=== PATIENT | female | born 1970 | race Caucasian/White ===

== ENCOUNTER 2023-06-12 21:10 | Emergency (ER) | payer OTHER, SELFPAY ==
--- NOTE | ~2023-06-12 | XR_ITS ---
EXAMINATION: XR knee LT 3V, XR hip LT w PEL1V CLINICAL INFORMATION: Additional Information: Left knee pain, rule out fracture : Left hip pain. COMPARISON: None. TECHNIQUE: Frontal view of the pelvis with 2 views of the left hip. 4 views of the left knee. FINDINGS: Pelvis/left hip: No fracture or dislocation. The hips are well aligned. Joint spaces are maintained. The pelvic rim is intact. The sacroiliac joints and pubic symphysis are well aligned. Normal bowel gas pattern. Left knee: No fracture or subluxation. Compartmental joint spaces are maintained. No joint effusion. The soft tissues appear unremarkable. XR/XR hip LT w PEL1V IMPRESSION: No fracture or malalignment.
--- NOTE | ~2023-06-12 | XR_ITS ---
EXAMINATION: XR knee LT 3V, XR hip LT w PEL1V CLINICAL INFORMATION: Additional Information: Left knee pain, rule out fracture : Left hip pain. COMPARISON: None. TECHNIQUE: Frontal view of the pelvis with 2 views of the left hip. 4 views of the left knee. FINDINGS: Pelvis/left hip: No fracture or dislocation. The hips are well aligned. Joint spaces are maintained. The pelvic rim is intact. The sacroiliac joints and pubic symphysis are well aligned. Normal bowel gas pattern. Left knee: No fracture or subluxation. Compartmental joint spaces are maintained. No joint effusion. The soft tissues appear unremarkable. XR/XR knee LT 3V IMPRESSION: No fracture or malalignment.
--- NOTE | ~2023-06-12 | US_ITS ---
EXAMINATION: US VENOUS ULTRASOUND WITH DOPPLER LOWER EXTREMITY, LEFT CLINICAL INFORMATION: Leg pain COMPARISON: None available. TECHNIQUE: Ultrasound of the deep veins is performed from the hip to the calf with compression sonography and color and pulse Doppler assessment. Spectral analysis with color-flow imaging is performed. FINDINGS: There is normal venous compression and respiratory variation and augmented flow. The visualized common femoral vein, superficial femoral vein, profunda femoral vein, popliteal vein, and the trifurcation region shows no evidence of deep venous thrombosis. There is no significant popliteal fossa cyst. If the patient's symptoms persist, followup ultrasound in 5 days 7 days might be of value to exclude proximal propagation from a non-visualized calf vein. US/US venous duplex LE LT IMPRESSION: No DVT demonstrated in the left lower extremity.
[2023-06-12 21:42] VITALS: BP 145/86; PULSE 66; RESP 16; TEMP 36.8; O2SAT 98; BMI 43.2
--- NOTE | 2023-06-13 | ECG_ITS ---
Test Reason : BRADYCARDIA Blood Pressure : / mmHG Vent. Rate : 054 BPM Atrial Rate : 054 BPM P-R Int : 204 ms QRS Dur : 088 ms QT Int : 488 ms P-R-T Axes : 051 006 018 degrees QTc Int : 462 ms Sinus bradycardia with marked sinus arrhythmia Cannot rule out Inferior infarct , age undetermined Nonspecific T wave abnormality Abnormal ECG When compared with ECG of 11-FEB-2009 12:47, Vent. rate has decreased BY 54 BPM Referred By: Generic ED Physician Electronically Signed By:DARRIN HARGROVE
[2023-06-13 01:03] VITALS: BP 162/74; PULSE 50; RESP 16; TEMP 36.1; O2SAT 100
--- NOTE | 2023-06-13 01:07 | MHC.EDTECH ---
Pt VS taken and RN informed of high BP.
[2023-06-13 02:57] VITALS: BP 132/61; PULSE 40; RESP 16; TEMP 36.1; O2SAT 100
--- NOTE | 2023-06-13 03:21 | MHC.EDTECH ---
VS taken, noted to be in bradycardia, RN notified.
[2023-06-13 03:30] LABS: Basophils Absolute Auto 0.1 X10*3/uL (0.0-0.2); Eosinophils Absolute Auto 0.1 X10*3/uL (0.0-0.4); Eosinophils Percent Auto 1.4 % (0-4); Hematocrit 42.9 % (37.0-47.0); Hemoglobin 14.2 g/dl (12.0-16.0); Imm Gran Abs Auto 0.01 X10*3/uL (0.00-0.03); Imm Gran Pct Auto 0.1 % (0.0-0.4); Lymphocytes Absolute Auto 2.8 X10*3/uL (1.2-4.9); Lymphocytes Percent Auto 35.1 % (20-40); MANUAL DIFF FLAG NO; Mean Corpuscular HGB Conc 33.1 g/dl (31.0-35.0); Mean Corpuscular Hemoglobin 29.8 pg (27.0-33.0); Mean Corpuscular Volume 90.1 fL (80.0-98.0); Mean Platelet Volume 9.7 fL (9.4-12.3); Monocytes Absolute Auto 0.6 X10*3/uL (0.1-1.2); Monocytes Percent Auto 7.1 % (2-11); Neutrophils Absolute Auto 4.5 x10*3/uL (2.0-8.3); Neutrophils Percent Auto 55.3 % (45-73); Platelet Count 319 X10*3/uL (160-400); Red Blood Count 4.76 X10*6/uL (4.20-5.50); Red Cell Distribution Width 12.4 % (11.0-16.0)
--- NOTE | 2023-06-13 03:30 | PC.NURSE ---
EDTA notified this RN that pt noted to be bradycardic at this time to 40 BPM. Pt relates that she has been having right leg numbness x1 month, states her mother approximately a month and a half ago and has not been in to see a physician nor does she follow with a PCP or take daily medications. Pt placed on wildlife policy professional, EKG taken and given to Dr. Davis, #20 PIV initiated to right AC, blood drawn and sent to lab. Pt moved to ED #1 for closer monitoring, Sugey RN given handoff report at this time.
[2023-06-13 03:36] LABS: INTERNATIONAL NORM RATIO 0.9 (0.9-1.1); Prothrombin Time 11.5 SEC (11.1-13.3)
[2023-06-13 03:47] LABS: Alanine Aminotransferase 21 U/L (0-31); Albumin Level 4.1 g/dL (3.5-5.0); Alkaline Phosphatase 83 U/L (39-117); Anion Gap 13 (12-20); Aspartate Amino Transferase 18 U/L (5-31); Bilirubin Direct 0.3 mg/dL (0.0-0.5); Bilirubin Total 0.7 mg/dL (0.0-1.0); Blood Urea Nitrogen 16 mg/dL (9-16); Calcium 9.6 mg/dL (8.4-10.2); Carbon Dioxide 24 mmol/L (22-29); Chloride 109 mmol/L (96-108); Creatinine Clr Calc Pharmacy 97.3; Estimated Glomerular Filt Rate > 60; Glucose Random 101 mg/dL (60-115); Potassium 4.1 mmol/L (3.3-5.1); Sodium 142 mmol/L (135-145); Total Protein 7.4 g/dL (6.5-8.0)
--- NOTE | 2023-06-13 03:55 | PC.NURSE ---
P 40-45, EKG completed and reviewed by Dr. Callejas. Patient denies dizziness/ lightheadedness/ fatigue/chest pain. paper inspector applied, sinus brigid P 40. 20 G IV line in R AC, labs drawn at [facility].
[2023-06-13 03:56] LABS: Troponin-I High Sensitivity < 2.7 ng/L (<3.5-17.0)
--- NOTE | 2023-06-13 04:21 | ED.GENADULT ---
HPI - General Adult General Chief complaint: General Medical Stated complaint: difficulty breathing numbness in fingers Time Seen by Provider: 06/13/23 04:20 Source: patient and family (Daughter) Mode of arrival: ambulatory Limitations: no limitations History of Present Illness HPI narrative: 52-year-old female with no significant past medical history who presents emergency department for evaluation of numbness, weakness and pain in her left lower extremity for 1 month. Patient states that she has been experiencing pain behind her left knee that radiates to her left buttocks. She states that this is been going on for 1 month this got worse over the past week. She states that today she was having pain with walking and states that she was able to walk but was limping. She states that she used an [id number] medication but does not remember the name of it, this did not help her pain Patient did not notice any increased swelling of her leg. Patient does not recall any injury. 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 While the patient was here in the emergency department she was noted to have bradycardia. Patient did not have any symptoms she denied chest pain, shortness of breath, cough, fever, chills. Related Data Allergies Allergy/AdvReac Type Severity Reaction Status Date / Time No Known Allergies Allergy Unverified 07/14/20 15:28 Review of Systems Review of Systems: Yes all other systems are reviewed and are negative [facility] Past Medical History [facility] Narrative: Past medical history: None. Surgical history: Appendectomy, x3. Social history: She denies tobacco, alcohol and drug use. She works at [employer]. Social History Social History Advance Directives: No Advance Directives Information Provided: No Physical Exam ED Vital Signs: Vital Signs - 24 hr 06/12/23 21:42 06/13/23 01:03 06/13/23 02:57 Temperature 98.3 F 97 F 96.9 F Pulse Rate 66 50 40 L Respiratory Rate 16 16 16 Blood Pressure 145/86 H 162/74 H 132/61 Pulse Oximetry 98 100 100 Oxygen Delivery Method Room Air Room Air Room Air 06/13/23 05:20 08/17/23 06:30 06/13/23 07:23 Temperature 97.9 F 98.0 F 97.7 F Pulse Rate 40 L 58 40 L Respiratory Rate 14 14 14 Blood Pressure 140/47 H 139/68 133/55 L Pulse Oximetry 96 99 100 Oxygen Delivery Method Room Air Room Air Room Air BMI result Body Mass Index 43.2 Vital signs did reveal an elevated blood pressure of 145/86 and 162/74. Patient initially had a normal heart rate of 66 and have heart rate that went down to 40, she was asymptomatic Exam: General: Awake, alert in no distress. Patient has an elevated BMI of 43.2. Head: Normocephalic, atraumatic EENT: PERRL, Lids normal, sclera normal, conjunctiva normal, nose normal , ears normal, throat without erythema or exudates Neck: Supple, no adenopathy, trachea midline and nontender Lung: breath sounds symmetric, no wheezing, rales or rhonchi Chest: symmetric movement, nontender Heart: regular rate and rhythm, normal S1, S2 no murmurs or rubs Abdomen: soft, non-tender, nondistended, normal bowel sounds Back: no vertebral tenderness, no CVAT Extremities: Patient has no difficulty with full range of motion of her right lower extremity. Patient has ecchymosis over her left knee with no joint effusion or increased warmth of the skin, no erythema. Patient does have pain with active and passive flexion extension of the left knee with no pain with active or passive flexion of the left hip. Patient's lower extremities appear to be symmetric in size. Skin: no rashes, no lesion, normal color and warmth Neuro: Awake, alert, oriented, normal speech, cranial nerves intact, moves all extremities symmetrically Psych: Pleasant, cooperative Medications Administered Discontinued Medications Generic Name Dose Route Start Last Admin Trade Name Freq PRN Reason Stop Dose Admin Ketorolac Tromethamine 15 mg 06/13/23 04:44 06/13/23 05:15 Ketorolac Tromethamine 15 Mg/Ml Vial IVPUSH 06/13/23 04:45 15 mg ONCE STA Administration Medical Decision Making Medical Decision Making MDM Narrative: 52-year-old female with no significant past medical history presents emergency department for evaluation of pain and numbness of her left leg x1 month with increased pain over the last several days. Patient was able to stand and walk but was limping secondary to the discomfort in her left knee and hip. Patient was noted to be bradycardic here in the emergency department but had no other concerning symptoms such as chest pain, shortness of breath, dyspnea, fever, chills. Patient's exam of her left knee revealed limited range of motion secondary to discomfort. The following evaluation was ordered: CBC, CMP, PT/INR, troponin, left knee x-ray, left hip and pelvis x-ray, left duplex ultrasound. 0810: Laboratory evaluation was unremarkable pain The patient's x-ray of her left hip and knee revealed no significant arthritic changes in no acute fractures Duplex ultrasound left lower extremity revealed no DVT Patient's pain is most likely secondary to soft tissue injury. Patient was advised to take ibuprofen Tylenol for pain She was given crutches to relieve the weight on the left knee while she is walking She will be for her to orthopedic providers for further evaluation Differential Diagnosis Differential Diagnoses: The differential diagnosis associated with the presentation includes Differential diagnosis includes was not limited to osteoarthritis of the knee, osteoarthritis of the hip, DVT, left knee sprain/contusion, left hip sprain/contusion, left lower extremity DVT. Bradycardia differential and myocardial infarction, myocardial ischemia, electrolyte abnormality Admission/Observation Consideration of admission/observation: Escalation of care including admission/observation considered Lab Data MDM Lab Attestation statement: I reviewed the patient's lab results. My independent interpretation patient's laboratory evaluation as follows: CBC was normal, CMP was normal. High sensitive troponin I was below detectable limits. PT/INR was normal. 06/13/23 03:22 06/13/23 03:22 Labs: Lab Results 06/13/23 06/13/23 06/13/23 Range/Units 03:22 03:22 03:22 WBC 8.0 (4.8-10.8) X10*3/uL RBC 4.76 (4.20-5.50) X10*6/uL Hgb 14.2 (12.0-16.0) g/dl Hct 42.9 (37.0-47.0) % MCV 90.1 (80.0-98.0) fL MCH 29.8 (27.0-33.0) pg MCHC 33.1 (31.0-35.0) g/dl RDW 12.4 (11.0-16.0) % Plt Count 319 (160-400) X10*3/uL MPV 9.7 (9.4-12.3) fL Immature Gran % (Auto) 0.1 (0.0-0.4) % Neut % (Auto) 55.3 (45-73) % Lymph % (Auto) 35.1 (20-40) % Traverse % (Auto) 7.1 (2-11) % Eos % (Auto) 1.4 (0-4) % Baso % (Auto) 1.0 (0-2) % Lymph # (Auto) 2.8 (1.2-4.9) X10*3/uL Traverse # (Auto) 0.6 (0.1-1.2) X10*3/uL Eos # (Auto) 0.1 (0.0-0.4) X10*3/uL Baso # (Auto) 0.1 (0.0-0.2) X10*3/uL Abs Immat Gran (auto) 0.01 (0.00-0.03) X10*3/uL Absolute Neuts (auto) 4.5 (2.0-8.3) x10*3/uL Absolute Nucleated RBC 0.000 (0.0-0.012) X10*3/uL Nucleated RBC % (auto) 0.0 (0.0-0.2) /100WBC PT 11.5 (11.1-13.3) SEC INR 0.9 (0.9-1.1) Sodium 142 (135-145) mmol/L Potassium 4.1 (3.3-5.1) mmol/L Chloride 109 H (96-108) mmol/L Carbon Dioxide 24 (22-29) mmol/L Anion Gap 13 (12-20) BUN 16 (9-16) mg/dL Creatinine 0.76 (0.5-1.4) mg/dL Estim Creat Clear Calc 97.3 Estimated GFR > 60 Random Glucose 101 (60-115) mg/dL Calcium 9.6 (8.4-10.2) mg/dL Total Bilirubin 0.7 (0.0-1.0) mg/dL Direct Bilirubin 0.3 (0.0-0.5) mg/dL AST 18 (5-31) U/L ALT 21 (0-31) U/L Alkaline Phosphatase 83 (39-117) U/L Troponin I High Sens (<3.5-17.0) ng/L Total Protein 7.4 (6.5-8.0) g/dL Albumin 4.1 (3.5-5.0) g/dL 06/13/23 Range/Units 03:22 WBC (4.8-10.8) X10*3/uL RBC (4.20-5.50) X10*6/uL Hgb (12.0-16.0) g/dl Hct (37.0-47.0) % MCV (80.0-98.0) fL MCH (27.0-33.0) pg MCHC (31.0-35.0) g/dl RDW (11.0-16.0) % Plt Count (160-400) X10*3/uL MPV (9.4-12.3) fL Immature Gran % (Auto) (0.0-0.4) % Neut % (Auto) (45-73) % Lymph % (Auto) (20-40) % Traverse % (Auto) (2-11) % Eos % (Auto) (0-4) % Baso % (Auto) (0-2) % Lymph # (Auto) (1.2-4.9) X10*3/uL Traverse # (Auto) (0.1-1.2) X10*3/uL Eos # (Auto) (0.0-0.4) X10*3/uL Baso # (Auto) (0.0-0.2) X10*3/uL Abs Immat Gran (auto) (0.00-0.03) X10*3/uL Absolute Neuts (auto) (2.0-8.3) x10*3/uL Absolute Nucleated RBC (0.0-0.012) X10*3/uL Nucleated RBC % (auto) (0.0-0.2) /100WBC PT (11.1-13.3) SEC INR (0.9-1.1) Sodium (135-145) mmol/L Potassium (3.3-5.1) mmol/L Chloride (96-108) mmol/L Carbon Dioxide (22-29) mmol/L Anion Gap (12-20) BUN (9-16) mg/dL Creatinine (0.5-1.4) mg/dL Estim Creat Clear Calc Estimated GFR Random Glucose (60-115) mg/dL Calcium (8.4-10.2) mg/dL Total Bilirubin (0.0-1.0) mg/dL Direct Bilirubin (0.0-0.5) mg/dL AST (5-31) U/L ALT (0-31) U/L Alkaline Phosphatase (39-117) U/L Troponin I High Sens < 2.7 (<3.5-17.0) ng/L Total Protein (6.5-8.0) g/dL Albumin (3.5-5.0) g/dL Independent Interpretation I performed an independent interpretation of an: EKG and Plain X-Ray Interpretation: My independent interpretation of the patient's 12 EKG is as follows: Bradycardia with a rate of 54, prolonged NV interval of 204 milliseconds consistent with a first-degree AV block, normal QRS duration and QTC interval, Q-wave in lead 3, no ST segment elevation, no ST segment depression, no significant T-wave abnormalities. Radiology Impression Discussion of test interpretation with radiology: I have reviewed the radiologist's reading. Radiologist Impression: US venous duplex LE LT IMPRESSION: No DVT demonstrated in the left lower extremity. Dictated By:Roberto Carlos Mandujano MD Frontal view of the pelvis with 2 views of the left hip. 4 views of the left knee. FINDINGS: Pelvis/left hip: No fracture or dislocation. The hips are well aligned. Joint spaces are maintained. The pelvic rim is intact. The sacroiliac joints and pubic symphysis are well aligned. Normal bowel gas pattern. Left knee: No fracture or subluxation. Compartmental joint spaces are maintained. No joint effusion. The soft tissues appear unremarkable. XR/XR knee LT 3V IMPRESSION: No fracture or malalignment. Dictated By:Judson Schmitt MD Discharge Plan Discharge Clinical Impression: Acute pain of left knee, Left hip pain Patient Disposition: Home, Self-Care Instructions: Knee Pain (ED), Hip Pain (ED) Additional Instructions: Your laboratory evaluation was unremarkable. Your x-rays of your knee in your hip did not reveal any significant arthritis or any other findings to explain your pain. The duplex ultrasound of your left lower extremity did not reveal any blood clots or other abnormalities. At this time, I suspect that the pain that your having in your knee and hip is called by muscles, ligaments or tendons of your knee and hip Take ibuprofen 200 mg pills, 2 pills every 6 hours for for days, then as needed for pain or fever. Take Tylenol (acetaminophen) 500 mg pills, 2 pills every 6 hours as needed for pain or fever. Use the crutches or cane as discussed. Follow-up with the orthopedic providers for re-evaluation Referrals: Michael Gonzalez MD [Physician] - 1 week (Left knee and hip pain)
[2023-06-13] MEDS: Ketorolac Tromethamine 15 MG/ML VIAL IVPUSH (05:15)
[2023-06-13 05:20] VITALS: BP 140/47; PULSE 40; RESP 14; TEMP 36.6; O2SAT 96
--- NOTE | 2023-06-13 05:21 | PC.NURSE ---
Dr. Callejas is aware of resting HR 39-49, no new orders at this time.
[2023-06-13 06:30] VITALS: BP 139/68; PULSE 58; RESP 14; TEMP 36.7; O2SAT 99
[2023-06-13 07:23] VITALS: BP 133/55; PULSE 40; RESP 14; TEMP 36.5; O2SAT 100
--- NOTE | 2023-06-13 08:14 | PC.NURSE ---
assumed care of this pt at 0700. Dr. Callejas at pt's bedside.
[2023-06-13] MEDS: Ibuprofen 400 MG TABLET PO (08:28)
--- NOTE | 2023-06-13 08:47 | PC.NURSE ---
pt cleared for discharge, discharge instructions reviewed with pt. crutches given with instructions. vss.
== END 2023-06-13 08:50 | disposition home or self-care (01) ==
PROVIDERS: Emergency Provider Emergency Medicine Emergency Medical Services
DX: M79.662 Pain in left lower leg (principal); M25.552 Pain in left hip
CPT/HCPCS: 36415; 73502; 73562; 80048; 80076; 84484; 85025; 85610; 93005; 93971; 96374; 99285; J1885

== ENCOUNTER 2024-11-26 09:18 | Outpatient (AMB) | payer OTHER, SELFPAY ==
--- NOTE | 2024-11-26 09:23 | MHC.PC.OV ---
Vital Signs 11/26/24 09:24 Height 5 ft 2 in Weight 227 lb 6 oz BMI 41.6 BP 136/70 Blood Pressure Location Rt brachial Position Sitting Pulse 57 Pulse Source Pulse Oximeter Temp 97.1 F Temp Source Temporal Artery Scan Pulse Oximetry (%) 99 Oxygen Delivery Method Room Air Intake Visit Reasons: establish care Intake Note: Patient is a new patient here to establish care for Cholecystectomy done at [facility] 08/12/24. Signal Intelligence/Electronic Warfare Required: No Accompanied by: Self / Same As Patient Allergies No Known Allergies Allergy (Unverified 11/26/24 09:42) Medication List - Last Reconciled 11/26/24 by Doreen Lopez PA-C Tobacco use date assessed: 11/26/24 Dental Screening Dental Screen Date: 11/26/24 Did you have a dental visit in the last 12 months?: Yes Did you have a dental problem in the last 6 months where you did not have access to dental care?: No Was dental information given to patient?: Patient has dentist HPI establish care HPI Details 53 year old female coming to the office for the first time. Patient had recent admission to [facility] 08/12/2024 for abdominal pain found to have choledocholithiasis. While admitted patient was notably bradycardic cardiology was consulted recommending home sleep study. Patient underwent laparoscopic cholecystectomy 08/14/2024 surgery was uncomplicated. Patient was discharged home with Tylenol and oxycodone and advised to follow up with GI specialist through [facility] in 1-2 weeks. Patient tells us today her last PCP was in [place] and last seen about 8 years ago. She has not had a mammogram or colonoscopy done in the past and has not been established with gynecology in several years he is not up-to-date on her Pap smears but has had Pap smears in the past that have been normal. She did see her surgeon postoperatively and was advised to follow up as needed. She has been doing well postoperatively and denies any diarrhea or abdominal pain since the cholecystectomy. She does have 1 concern today she has left leg pain that has been persistent for several years that is behind the knee and worse with sitting and bending. She does have a job that requires her to stand for long periods of time as well as bend and she notices it is worse at the end of the day. The pain will occasionally radiate up the hip but primarily stays in the back of the knee. [facility] Medical History (Updated 11/26/24 @ 10:03 by Doreen Lopez PA-C) Seizure disorder Surgical History (Updated 11/26/24 @ 09:48 by Doreen Lopez PA-C) H/O section History of appendectomy S/P cholecystectomy Family History (Updated 11/26/24 @ 09:47 by Doreen Lopez PA-C) Mother Hypertension Diabetes mellitus Sister Diabetes mellitus Social History Housing: House Patient Tobacco Use Status: Never used Tobacco e-Cigarette/Vaping Use: Never Used service: No Current occupational status: employed Current occupation: [email or web address] Cognitive needs: No Hearing needs: No Vision needs: No Female Reproductive History Menstrual control method: permanent sterilization Permanent Sterilization: BTL Total pregnancies: 3 Questionnaire PHQ-9 Over the last 2 weeks, how often have you been bothered by any of the following problems? 1. Little interest or pleasure in doing things: not at all 2. Feeling down, depressed, or hopeless: not at all 3. Trouble falling or staying asleep, or sleeping too much: not at all 4. Feeling tired or having little energy: not at all 5. Poor appetite or overeating: not at all 6. Feeling bad about yourself - or that you are a failure or have let yourself or your family down: not at all 7. Trouble concentrating on things, such as reading the newspaper or watching television: not at all 8. Moving or speaking so slowly that other people could have noticed. Or the opposite - being so fidgety or restless that you have been moving around a lot more than usual: not at all 9. Thoughts that you would be better off or of hurting yourself in some way: not at all Total score: 0 57974 - PHQ-9 Billing: Yes Source: Developed by Drs. Timothy Hatfield, Radha Sandoval, Sean Martins and colleagues, with an educational carolyn from [employer] Thrive Questionnaire Date Thrive assessed: 11/20/24 I am a: Patient What is your living situation today?: I have a steady place to live Within the past 12 months, did the food you bought not last and you didn't have the money to get more?: Never true Within the past 12 months, did you worry whether your food would run out before you got money to buy more?: Never true Do you have trouble paying for medicines?: No Do you have trouble getting transportation to medical appointments?: No Do you have trouble paying your heating and electricity bill?: No Do you have trouble taking care of your child, family member or friend?: No Do you have trouble with day-to-day activities such as bathing, preparing meals, shopping, managing finances, etc.?: No Are you currently unemployed and looking for a job?: No Are you interested in more education?: No Please select the resources that you would like help with: None THRIVE Score: 0 AUDIT C Alcohol Use Questionnaire (AUDIT-C) 1. How often do you have a drink containing alcohol?: Monthly or less 2. How many drinks containing alcohol do you have on a typical day when you are drinking?: 1 or 2 3. How often do you have six or more drinks on one occasion?: Never Total Score: 1 SUMMER-7 AMB Questionnaire SUMMER-7 Date SUMMER - 7 assessed: 11/26/24 Feeling nervous, anxious, or on edge: 0 = Not at all Not being able to stop or control worryin = Not at all Worrying too much about different things: 0 = Not at all Trouble relaxin = Not at all Being so restless that it is hard to sit still: 0 = Not at all Becoming easily annoyed or irritable: 0 = Not at all Feeling afraid as if something awful might happen: 0 = Not at all Total SUMMER-7 score (0-4 normal; 5-9 mild; 10-14 moderate; 15-21 severe): 0 Source: Developed by Drs. Timothy Hatfield, Radha Sandoval, Sean Martins and colleagues, with an educational carolyn from [employer] SUMMER-7 Assessment Billing SUMMER-7 Assessment Tool: SUMMER-7 Assessment 80092 Review of Systems Const Denies body aches, Denies fatigue, Denies fever(s), Denies frequent falls, Denies headache(s) and Denies weakness Eyes Reports no additional complaints and Denies change in vision ENT Denies dysphagia, Denies dizziness, Denies facial pain, Denies headache(s), Denies nasal congestion and Denies odynophagia Card Denies chest pain, Denies syncope, Denies irregular heart rhythm, Denies leg edema, Denies lightheadedness and Denies dyspnea Resp Denies cough and Denies dyspnea GI Denies constipation, Denies dysphagia, Denies dyspepsia, Denies diarrhea, Denies nausea, Denies odynophagia and Denies vomiting Denies urinary frequency, Denies dysuria, Denies urinary hesitancy and Denies urinary urgency Musc Denies back pain and Denies myalgias Skin/Breast Reports system reviewed and no additional complaints, except as documented Neuro Denies dizziness, Denies syncope, Denies frequent falls, Denies headache(s) and Denies weakness Psych Reports no additional complaints Endo Denies fatigue Physical exam (Primary Care) Vital Signs: Last Vital Signs Temp 97.1 F 11/26/24 09:24 Pulse 57 11/26/24 09:24 BP 136/70 11/26/24 09:24 Pulse Ox 99 11/26/24 09:24 Oxygen Delivery Method Room Air 11/26/24 09:24 BMI result Body Mass Index 41.6 Tobacco/Smoking Status: Tobacco use Status Tobacco use date assessed 11/26/24 11/26/24 09:35 Patient Tobacco Use Status Never used Tobacco 11/26/24 09:35 e-Cigarette/Vaping Use Never Used 11/26/24 09:35 PHQ-9: PHQ-9 Score PHQ-9: Total score 0 11/26/24 09:36 Thrive Assessment: Date of Thrive Assessment Date Thrive assessed 11/20/24 11/26/24 09:27 Const General: cooperative, healthy appearing, comfortable and no acute distress Orientation/consciousness: patient oriented x3 HENMT Head: Yes normocephalic Ears: hearing grossly normal bilaterally General nose exam: Normal external nose present Eyes General: appearance normal, both eyes and all related structures Conjunctivae: conjunctivae normal Neck Neck: Yes full ROM and Yes no lymphadenopathy Resp Effort & Inspection: normal respiratory effort Auscultation: clear to auscultation bilaterally, no crackles, no rales, no rhonchi and no wheezes Cardio Rate: regular rate Rhythm: regular rhythm Skin Other: multiple Telangiectasias over bilateral lower extremities General skin exam: no rashes or lesions noted Neuro General: patient oriented x3 Gait exam (Neuro): Normal gait present Extrem Other: Strength and sensation intact in bilateral lower extremities. No tenderness to palpation over anterior aspect of the knee however does have tenderness to palpation over posterior aspect of the knee. No calf swelling, tenderness or skin changes. General: Yes normal to inspection, Yes full ROM and No edema Psych Affect: normal affect Attitude: cooperative Insight: Good insight present (Psych) Judgement: Good judgement present (Psych) Office Procedures Flu Questionnaire Does the patient have a severe egg allergy?: No Immunizations Fluarix Triv 3225-0655 (PF) 45 mcg (15 mcg x 3)/0.5 mL IM syringe Performing Provider: Doreen Lopez PA-C [facility] Documented (not given) by: LEEANN Boss on 11/26/24 09:36 Reason Not Given: Received Previously Coding Level of Care Code New Pt Level 4 (55333) Diagnoses Bradycardia R00.1 Screening for cervical cancer Z12.4 Screening for hypercholesterolemia Z13.220 Hypersomnolence G47.10 Left knee pain M25.562 Screening for diabetes mellitus Z13.1 Additional Codes SUMMER-7 Assessment Billing - SUMMER-7 Assessment Tool: SUMMER-7 Assessment 92689 ([id number]) PHQ-9 - 03707 - PHQ-9 Billing: Yes ([id number]) Assessment & Plan Assessment & Plan (1) Bradycardia: Code(s): R00.1 - Bradycardia, unspecified Category: Medical Plan: Patient found to be bradycardic while admitted in [facility] after cholecystectomy. Seen by Cardiology and advised to undergo outpatient sleep study for further evaluation. Home sleep study ordered today. (2) Screening for cervical cancer: Code(s): Z12.4 - Encounter for screening for malignant neoplasm of cervix Category: Medical Plan: Referral placed to gynecology for cervical cancer screening (3) Screening for hypercholesterolemia: Code(s): Z13.220 - Encounter for screening for lipoid disorders Category: Medical Plan: Ordered for cholesterol labs has patient has strong family history of high cholesterol. (4) Hypersomnolence: Code(s): G47.10 - Hypersomnia, unspecified Category: Medical Plan: Patient complaining of hypersomnolence throughout the day was also advised by Cardiology to undergo home sleep study. Referral placed to sleep medicine for home sleep study. (5) Left knee pain: Code(s): M25.562 - Pain in left knee Category: Medical Plan: Patient complaining of left knee pain primarily the posterior aspect. On exam low concern for DVT as there is no lower limb swelling, redness or pain palpation. Ordered for knee x-ray for further evaluation advised patient to use [id number] Voltaren gel for pain management. (6) Screening for diabetes mellitus: Code(s): Z13.1 - Encounter for screening for diabetes mellitus Category: Medical Plan: Patient has strong family history of diabetes mellitus ordered for A1c as well as additional blood work. Plan Ordered for updated blood work and refer patient for routine screenings. Plan to follow up in 3 months for annual exam. This note was constructed using voice recognition software. While every effort has been made to ensure accuracy and box folding machine operator, still areas may have been included sometimes these areas may affect the content or meeting of the given symptoms. Total time spent caring for the patient today was 30 minutes. This includes time spent before the visit reviewing the chart, time spent during the visit, and time spent after the visit and documentation. Orders: Orders Comprehensive Met. Panel Today Z00.00 - Encounter for general adult medical examination without abnormal findings Lipid Panel Today Z13.220 - Encounter for screening for lipoid disorders Hemoglobin A1c Today Z13.1 - Encounter for screening for diabetes mellitus RT home sleep study Today G47.10 - Hypersomnia, unspecified Influenza 5974-1089 Immunization Today Z23 - Encounter for immunization MM tomosynthesis screening BI Today Z12.31 - Encounter for screening mammogram for malignant neoplasm of breast Complete Blood Count Auto Diff Today Z00.00 - Encounter for general adult medical examination without abnormal findings TSH reflex Free T4 Today Z00.00 - Encounter for general adult medical examination without abnormal findings Vitamin B12 and Folate Today Z00.00 - Encounter for general adult medical examination without abnormal findings Vitamin D 25-OH Total Today Z00.00 - Encounter for general adult medical examination without abnormal findings XR knee LT 2V Today M25.562 - Pain in left knee Referrals TABBER Referral Z12.4 - Encounter for screening for malignant neoplasm of cervix Cologuard Test Z12.11 - Encounter for screening for malignant neoplasm of colon Medications: New diclofenac sodium 1% (Voltaren Arthritis Pain) apply to single knee 2 grams topical QID 100 grams 0RF
[2024-11-26 09:24] VITALS: BP 136/70; PULSE 57; TEMP 36.2; O2SAT 99; BMI 41.6
--- OUTSIDE RECORDS SUMMARY | 2024-11-26 12:28 | XMS_ITS | Clinical Summary ---
Author Organization [employer] [facility] Address [address] [place] [address] [address] [place] [address] Care Team Providers Care Childcare Center Administrator Name Role Phone Unavailable Primary Care Provider Unavailabl e Allergies No known active allergies Medications No known medications Social History Tobacco Use Types Packs/Day Years Used Date Smoking Tobacco: Never Assessed Comments Unknown Sex and Gender Information Value Date Recorded Sex Assigned at Female 05/05/2024 8:21 AM EDT Legal Sex Female 8:16 AM EDT Gender Identity Female 05/05/2024 8:21 AM EDT Sexual Orientation Choose not to disclose 2023 8:21 AM EDT Last Filed Vital Signs Vital Sign Reading Time Taken Comments Blood Pressure 140/80 05/25/2024 8:05 AM EDT Pulse - - Temperature - - Respiratory Rate - - Oxygen Saturation - - Inhaled Oxygen Concentration - - Weight - - Height - - Body Mass Index - - Plan of Treatment Health Maintenance Due Date Last Done Comments CT Colonography 1968 Colonoscopy 1968 Colorectal Cancer Screening 1968 Dental Prophylaxis 1968 Dental X-Ray: Bitewings 1968 Dental X-Ray: Full Mouth 1968 Depression Screening 1968 FIT DNA/Cologuard 1968 FIT 1968 FOBT 1968 HIV Screening 1968 SDOH Screening 1968 Sigmoidoscopy 1968 Alcohol/Substance Use Screening 1980 Tobacco Screening 1980 Hepatitis C Screening 1986 DTaP/Tdap/Td Vaccines (1 - Tdap) 1987 Hepatitis B Vaccines (1 of 3 - 19+ 3-dose series) 1987 Pap Smear 1989 Cervical Cancer Screening 1998 HPV/Cotest 1998 Mammogram 2008 Zoster Vaccines (1 of 2) 2018 COVID-19 Vaccine (3 2023-2 5 season) 2024 02/10/2021, 01/19/2021 Influenza Vaccine (#1) 2024 08/02/2016 Dental Oral Exam 11/06/2024 05/05/2024 RSV Patients and Patients Aged 60 years or older (1 - 1-dose 75+ series) 2043 HIB Vaccines Aged Out No longer eligi ble based on patient's age to complete this topic HPV Vaccines Aged Out No longer eligi ble based on patient's age to complete this topic Hepatitis A Vaccines Aged Out No long er eligible based on patient's age to complete this topic IPV Vaccines Aged Out No longer eligi ble based on patient's age to complete this topic Meningococcal Vaccine Aged Out No coleman timur eligible based on patient's age to complete this topic Pneumococcal Vaccine: Pediatrics (0 to 5 Years) and At-Risk Patients (6 to 49) Years) Aged Out No longer eligible b ased on patient's age to complete this topic RSV under 20 months Aged Out No longe r eligible based on patient's age to complete this topic Rotavirus Vaccines Aged Out No longer eligible based on patient's age to complete this topic Procedures Procedure Name Priority Date/Time Associated Diagnosis Comments PERIODIC ORAL EVALUATION - ESTABLISHED PATIENT Routine 05/05/2024 10:30 AM EDT from Last 3 Months or Most Recently Relevant to Health Maintenance Insurance [facility]
== END 2024-11-26 10:15 | disposition home or self-care (01) ==
DX: R00.1 Bradycardia, unspecified (principal); Z12.4 Encounter for screening for malignant neoplasm of cervix; Z13.220 Encounter for screening for lipoid disorders; G47.10 Hypersomnia, unspecified; M25.562 Pain in left knee; Z13.1 Encounter for screening for diabetes mellitus; Z23 Encounter for immunization

== ENCOUNTER → 2024-11-26 09:18 | Outpatient (BNVA) | payer OTHER, SELFPAY | DX: R00.1 Bradycardia, unspecified (principal); G47.10 Hypersomnia, unspecified; M25.562 Pain in left knee; Z90.49 Acquired absence of other specified parts of digestive tract | CPT/HCPCS: 90471; 96127 ==

== ENCOUNTER 2024-11-28 06:59 | Outpatient (REF) | payer OTHER, SELFPAY ==
--- NOTE | ~2024-11-28 | XR_ITS ---
CLINICAL HISTORY: M25.562 - Pain in left knee 2 view left knee Comparison: CR/SR - XR KNEE LT 3V - 06/13/23 05:11 EDT Findings: No fractures or dislocations. Small medial and patellofemoral compartment osteophytes without joint space loss. No joint effusion. No radiopaque foreign body. IMPRESSION: 1. Mild medial and patellofemoral compartment osteoarthropathy. No significant change since 2022. This document has been electronically signed by: Debi Carrasquillo MD on 12/01/2024 09:18:03
--- OUTSIDE RECORDS SUMMARY | 2024-11-28 07:02 | XMS_ITS | Clinical Summary ---
Author Organization [employer] [facility] Address [address] [place] [address] [address] [place] [address] Care Team Providers Care Fbi Field Agent Name Role Phone Unavailable Primary Care Provider [...] Cancer Screening 1998 HPV/Cotest 1998 Mammogram 2008 Pneumococcal Vaccine: 50+ Years (1 of 1 - PCV) 2018 Zoster Vaccines (1 of 2) 2018 COVID-19 Vaccine (3 - 2023-2 5 season) 2024 02/10/2021, 01/19/2021 Influenza [...] Most Recently Relevant to Health Maintenance Insurance [facility] [place] [id number]
[2024-11-28 07:35] LABS: MANUAL DIFF FLAG NO
[2024-11-28 07:42] LABS: Basophils Absolute Auto 0.1 X10*3/uL (0.0-0.2); Basophils Percent Auto 0.9 % (0-2); Eosinophils Absolute Auto 0.1 X10*3/uL (0.0-0.4); Eosinophils Percent Auto 1.2 % (0-4); Hematocrit 43.6 % (37.0-47.0); Hemoglobin 14.3 g/dl (12.0-16.0); Imm Gran Abs Auto 0.01 X10*3/uL (0.00-0.03); Imm Gran Pct Auto 0.1 % (0.0-0.4); Lymphocytes Absolute Auto 2.2 X10*3/uL (1.2-4.9); Lymphocytes Percent Auto 33.4 % (20-40); Mean Corpuscular HGB Conc 32.8 g/dl (31.0-35.0); Mean Corpuscular Hemoglobin 29.9 pg (27.0-33.0); Mean Platelet Volume 10.2 fL (9.4-12.3); Monocytes Absolute Auto 0.5 X10*3/uL (0.1-1.2); Monocytes Percent Auto 6.7 % (2-11); Neutrophils Absolute Auto 3.9 x10*3/uL (2.0-8.3); Neutrophils Percent Auto 57.7 % (45-73); Platelet Count 348 X10*3/uL (160-400); Red Blood Count 4.79 X10*6/uL (4.20-5.50); Red Cell Distribution Width 12.5 % (11.0-16.0); White Blood Count 6.7 X10*3/uL (4.8-10.8)
[2024-11-28 07:46] LABS: Estimated Average Glucose 111 mg/dL; Hemoglobin A1C 138.1552 umol/L; Hemoglobin A1c % 5.5 % (<6.0)
[2024-11-28 08:09] LABS: Alanine Aminotransferase 22 U/L (0-31); Albumin Level 4.1 g/dL (3.5-5.0); Alkaline Phosphatase 80 U/L (39-117); Anion Gap 11 (12-20); Aspartate Amino Transferase 23 U/L (5-31); Bilirubin Total 0.7 mg/dL (0.0-1.0); Blood Urea Nitrogen 18 mg/dL (9-16); Calcium 9.4 mg/dL (8.4-10.2); Carbon Dioxide 27 mmol/L (22-29); Chloride 111 mmol/L (96-108); Cholesterol 184 mg/dL (<200); Estimated Glomerular Filt Rate > 60; Glucose Random 95 mg/dL (60-115); HDL Cholesterol 55 mg/dL (>40); LDL Cholesterol Calculated 113 mg/dL (<100); Potassium 4.4 mmol/L (3.3-5.1); Sodium 145 mmol/L (135-145); Total Protein 7.5 g/dL (6.5-8.0); Triglycerides 83 mg/dL (<150)
[2024-11-28 08:24] LABS: TSH reflex Free T4 1.14 uIU/mL (0.32-4.0); Vitamin D 25-OH Total 10.9 ng/mL (>30)
[2024-11-28 08:35] LABS: Folate 8.5 ng/mL (> or = 4.0); Vitamin B12 1059 pg/mL (200-900)
== END 2024-11-28 07:00 | disposition home or self-care (01) ==
LOC: HO.XRAY 06:59
DX: Z00.00 Encounter for general adult medical examination without abnormal findings (principal); M25.562 Pain in left knee; Z13.220 Encounter for screening for lipoid disorders; Z13.1 Encounter for screening for diabetes mellitus
CPT/HCPCS: 36415; 73560; 80053; 80061; 82306; 82607; 82746; 83036; 84443; 85025

== ENCOUNTER → 2024-11-28 07:22 | Outpatient (BNV) | payer OTHER, SELFPAY | PROVIDERS: Visit Provider Radiology Diagnostic Radiology | DX: M25.562 Pain in left knee (principal) | CPT/HCPCS: 73560 ==

== ENCOUNTER 2025-01-13 09:12 | Outpatient (REF) | payer OTHER, SELFPAY ==
--- OUTSIDE RECORDS SUMMARY | 2025-01-13 10:09 | XMS_ITS | Clinical Summary ---
Author Organization [employer] [facility] Address [address] [place] [address] [address] [place] [address] Care Team Providers Care [employer] Sales Representative Name Role Phone Unavailable Primary Care Provider [...] Most Recently Relevant to Health Maintenance Insurance [facility]
== END 2025-01-13 09:13 | disposition home or self-care (01) ==
LOC: HO.MAMMO 09:12
DX: Z12.31 Encounter for screening mammogram for malignant neoplasm of breast (principal)
CPT/HCPCS: 77063; 77067

== ENCOUNTER → 2025-01-13 09:30 | Outpatient (BNV) | payer OTHER, SELFPAY | PROVIDERS: Visit Provider Internal Medicine | DX: Z12.31 Encounter for screening mammogram for malignant neoplasm of breast (principal) | CPT/HCPCS: 77063; 77067 ==

== ENCOUNTER → 2025-01-25 08:52 | Outpatient (REF) | payer OTHER, SELFPAY | LOC: HO.SL 08:52 | DX: G47.10 Hypersomnia, unspecified (principal) | CPT/HCPCS: 95806 ==

== ENCOUNTER → 2025-01-25 09:03 | Outpatient (BNV) | payer OTHER, SELFPAY | PROVIDERS: Visit Provider Internal Medicine | DX: G47.10 Hypersomnia, unspecified (principal); R06.83 Snoring | CPT/HCPCS: 95806 ==

== ENCOUNTER 2025-02-26 15:31 | Outpatient (AMB) | payer OTHER, SELFPAY ==
--- OUTSIDE RECORDS SUMMARY | 2025-02-26 15:34 | XMS_ITS | Clinical Summary ---
Author Organization [employer] [facility] Address [address] [place] [address] [address] [place] [address] Care Team Providers Care Chief Deputy Court Clerk Name Role Phone Unavailable Primary Care Provider [...] Most Recently Relevant to Health Maintenance Insurance [facility]
--- NOTE | 2025-02-26 15:36 | A.OFFPC_ITS ---
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 In review of the notes, patient completed sleep study 01/2025 negative for sleep apnea recommended ENT for evaluation and treatment.? Patient completed Cologuard test negative 12/2024. Patient has no acute concerns today. 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 eye doctor: [facility] yearly [facility] Medical History Seizure disorder Surgical History H/O section History of appendectomy S/P cholecystectomy Family History Mother Hypertension Diabetes mellitus Sister Diabetes mellitus Social History Housing: House Patient Tobacco Use Status: Never used Tobacco e-Cigarette/Vaping Use: Never Used service: No Current occupational status: employed Current occupation: [employer] Cognitive needs: No Hearing needs: No Vision needs: No Questionnaire Thrive Questionnaire Date Thrive assessed: 11/20/24 I am a: Patient What is your living situation today?: I have a steady place to live Within the past 12 months, did the food you bought not last and you didn't have the money to get more?: Never true Within the past 12 months, did you worry whether your food would run out before you got money to buy more?: Never true Do you have trouble paying for medicines?: No Do you have trouble getting transportation to medical appointments?: No Do you have trouble paying your heating and electricity bill?: No Do you have trouble taking care of your child, family member or friend?: No Do you have trouble with day-to-day activities such as bathing, preparing meals, shopping, managing finances, etc.?: No Are you currently unemployed and looking for a job?: No Are you interested in more education?: No Please select the resources that you would like help with: None Currently or been in a relationship where the following occur: No concerns reported THRIVE Score: 0 SUMMER-7 AMB Questionnaire SUMMER-7 Date SUMMER - 7 assessed: 11/26/24 Source: Developed by Drs. Timothy Hatfield, Radha Sandoval, Sean Martins and colleagues, with an educational carolyn from [employer]. Review of Systems Const Denies body aches, Denies chills, Denies fever(s), Denies headache(s) and Denies poor appetite Eyes Reports no additional complaints ENT Denies dysphagia, Denies dizziness, Denies headache(s) and Denies odynophagia Card Denies chest pain, Denies syncope, Denies edema, Denies irregular heart rhythm, Denies lightheadedness and Denies dyspnea Resp Denies cough and Denies dyspnea GI Denies abdominal pain, Denies constipation, Denies dysphagia, Denies diarrhea, Denies nausea, Denies odynophagia and Denies vomiting Reports no additional complaints Musc Reports no additional complaints and Denies abnormal gait Skin/Breast Reports system reviewed and no additional complaints, except as documented Neuro Denies abnormal gait, Denies dizziness, Denies syncope and Denies headache(s) Psych Reports no additional complaints Physical exam (Primary Care) Vital Signs: Last Vital Signs Temp 97.3 F 02/26/25 15:46 Pulse 68 02/26/25 15:46 BP 122/82 02/26/25 15:46 Pulse Ox 96 02/26/25 15:46 Oxygen Delivery Method Room Air 02/26/25 15:46 BMI result Body Mass Index 41.7 Tobacco/Smoking Status: Tobacco use Status Tobacco use date assessed 11/26/24 02/26/25 15:36 Patient Tobacco Use Status Never used Tobacco 02/26/25 15:36 e-Cigarette/Vaping Use Never Used 02/26/25 15:36 Thrive Assessment: Date of Thrive Assessment Date Thrive assessed 11/20/24 02/26/25 15:36 Currently or been in a relationship where the following occur: No concerns reported Const General: cooperative, healthy appearing, comfortable and no acute distress Orientation/consciousness: patient oriented x3 HENMT Head: Yes normocephalic Ears: hearing grossly normal bilaterally and Abnormal EAC present cerumen impaction bilateral General nose exam: Normal external nose present Face and sinus: Yes normal facial exam and Yes sinuses nontender Mouth: Normal oral and palatal mucosa present and tongue normal Throat: Yes posterior oropharynx normal Eyes General: appearance normal, both eyes and all related structures Conjunctivae: conjunctivae normal Pupils: Equal, round and reactive pupils present EOM: EOMs intact bilaterally and No Nystagmus present Neck Neck: Yes full ROM and Yes no lymphadenopathy Chest Chest palpation & inspection: normal inspection of the chest Resp Effort & Inspection: normal respiratory effort Auscultation: clear to auscultation bilaterally, no crackles, no rales, no rhonchi and no wheezes Cardio Rate: regular rate Rhythm: regular rhythm Peripheral pulses: radial pulses present and dorsalis pedis present GI Inspection: Yes normal to inspection and No Abdominal wall edema Palpation (GI): Soft to palpation, not firm and nontender Auscultation: normal bowel sounds Rectal Exam - Female: deferred General: Yes no CVA tenderness Back/Spine/Pelvis Back: no CVA tenderness Skin General skin exam: no rashes or lesions noted Neuro General: patient oriented x3 Cranial nerves: Yes Equal, round and reactive pupils present, Yes Midline tongue present, Yes Ability to bilaterally elevate shoulders present and No Nystagmus present Gait exam (Neuro): Normal gait present Extrem General: Yes normal to inspection, Yes full ROM and No edema Psych Speech and movement: Normal speech and movement present Affect: normal affect Attitude: cooperative Insight: Good insight present (Psych) Judgement: Good judgement present (Psych) Coding Level of Care Code Est Pt Prev Care 40-64y(23695) Diagnoses Hypersomnolence G47.10 Left knee pain M25.562 Annual physical exam Z00.00 Bradycardia R00.1 Hypercholesteremia E78.00 Impacted cerumen of both ears H61.23 Assessment & Plan Assessment & Plan (1) Hypersomnolence: Code(s): G47.10 - Hypersomnia, unspecified Category: Medical Plan: Patient complaining of hypersomnolence throughout the day was also advised by Cardiology to undergo home sleep study. Sleep study negative a did recommend ENT referral however patient declined as insurance will not cover this. (2) Left knee pain: Code(s): M25.562 - Pain in left knee Category: Medical Plan: Patient complaining of left knee pain primarily the posterior aspect. X-ray jerad wing mild arthritis and having good benefit from diclofenac gel. Continue to use Voltaren as needed (3) Annual physical exam: Code(s): Z00.00 - Encounter for general adult medical examination without abnormal findings Category: Medical Plan: Patient is up-to-date on all recommended routine screenings and vaccinations for her age. Blood work up-to-date and has been reviewed today with the patient. (4) Bradycardia: Code(s): R00.1 - Bradycardia, unspecified Category: Medical Plan: Patient found to be bradycardic while admitted in [facility] after cholecystectomy. Sleep study negative. Heart rate in the office has been within normal limits recommend patient monitoring the heart rate on outpatient basis bring log to next visit. (5) Hypercholesteremia: Code(s): E78.00 - Pure hypercholesterolemia, unspecified Category: Medical Plan: Avoid foods that are high in cholesterol such as red meat, fried foods, eggs and baked goods. Triglyceride goal of less than 150 and LDL goal of less than 130. LDL 113 on last labs (6) Impacted cerumen of both ears: Code(s): H61.23 - Impacted cerumen, bilateral Category: Medical Plan: Advised patient to use debrox for 4 days and come back to the office for ear flush Plan This note was constructed using voice recognition software. While every effort has been made to ensure accuracy and radio television technical director, still areas may have been included sometimes these areas may affect the content or meeting of the given symptoms. Total time spent caring for the patient today was 30 minutes. This includes time spent before the visit reviewing the chart, time spent during the visit, and time spent after the visit and documentation. Medications: New carbamide peroxide 6.5% (Debrox) 5 drps otic (ear) left DAILY 4 days 15 mL 0RF
[2025-02-26 15:46] VITALS: BP 122/82; PULSE 68; TEMP 36.3; O2SAT 96; BMI 41.7
== END 2025-02-26 16:51 | disposition home or self-care (01) ==
LOC: HO.HMCH 15:32
DX: G47.10 Hypersomnia, unspecified (principal); M25.562 Pain in left knee; Z00.00 Encounter for general adult medical examination without abnormal findings; R00.1 Bradycardia, unspecified; E78.00 Pure hypercholesterolemia, unspecified; H61.23 Impacted cerumen, bilateral

== ENCOUNTER → 2025-02-26 15:31 | Outpatient (BNVA) | payer OTHER, SELFPAY | DX: Z13.89 Encounter for screening for other disorder (principal) ==

== ENCOUNTER 2025-03-19 15:23 | Outpatient (AMB) | payer OTHER, SELFPAY ==
--- OUTSIDE RECORDS SUMMARY | 2025-03-19 15:26 | XMS_ITS | Clinical Summary ---
Author Organization [employer] Address 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 Name Role Phone Unavailable Primary Care Provider Unavailabl e Allergies No known active allergies Medications No known medications Encounters Date Type Department Care Team Description 03/09/2025 Telephone [facility] ADULT D[facility] [address] [place] [address] Chelsea De León DDS from Last 3 Months Social History Tobacco Use Types Packs/Day Years [...] Screening 1968 SDOH Screening 1968 Sigmoidoscopy 1968 Disability Screening 1968 Alcohol/Substance Use Screening 1980 Tobacco Screening [...] patient's age to complete this topic Meningococcal B Vaccine Aged Out No l onger eligible based on patient's age to complete [...] Most Recently Relevant to Health Maintenance [place] [address] [place] [address] [place] [address]
--- NOTE | 2025-03-19 15:30 | A.OFFPC_ITS ---
Vital Signs 03/19/25 15:32 Height 5 ft 2 in Weight 225 lb 2 oz BMI 41.2 BP 110/60 Blood Pressure Location Lt brachial Position Sitting Pulse 51 Pulse Source Pulse Oximeter Temp 97.1 F Temp Source Temporal Artery Scan Pulse Oximetry (%) 99 Oxygen Delivery Method Room Air Intake Visit Reasons: ear cleaning Intake Note: Patient is here to follow up on Ear cleaning. Wire Sawyer Required: No Senior Logistics Manager: Not Required per policy Accompanied by: Self / Same As Patient Allergies No Known Allergies Allergy (Verified 03/19/25 15:37) Medication List - Last Reconciled 03/19/25 by Doreen Lopez PA-C acetaminophen (Tylenol) 325 mg PO QID PRN carbamide peroxide 6.5% (Debrox) 5 drps otic (ear) left DAILY 4 days cholecalciferol (vitamin D3) 25 mcg PO DAILY diclofenac sodium 1% (Voltaren Arthritis Pain) 2 grams topical QID Tobacco use date assessed: 03/19/25 Dental Screening Dental Screen Date: 11/26/24 HPI ear cleaning HPI Details 54 year old female coming to the office for ear cleaning. PFSH Medical History Seizure disorder Surgical History H/O section History of appendectomy S/P cholecystectomy Family History Mother Hypertension Diabetes mellitus Sister Diabetes mellitus Social History Housing: House Patient Tobacco Use Status: Never used Tobacco e-Cigarette/Vaping Use: Never Used Second Hand Smoke Exposure: No service: No Current occupational status: employed Current occupation: [employer] Cognitive needs: No Hearing needs: No Vision needs: No Questionnaire Thrive Questionnaire Date Thrive assessed: 11/20/24 I am a: Patient What is your living situation today?: I have a steady place to live Within the past 12 months, did the food you bought not last and you didn't have the money to get more?: Never true Within the past 12 months, did you worry whether your food would run out before you got money to buy more?: Never true Do you have trouble paying for medicines?: No Do you have trouble getting transportation to medical appointments?: No Do you have trouble paying your heating and electricity bill?: No Do you have trouble taking care of your child, family member or friend?: No Do you have trouble with day-to-day activities such as bathing, preparing meals, shopping, managing finances, etc.?: No Are you currently unemployed and looking for a job?: No Are you interested in more education?: No Please select the resources that you would like help with: None THRIVE Score: 0 SUMMER-7 AMB Questionnaire SUMMER-7 Date SUMMER - 7 assessed: 11/26/24 Source: Developed by Drs. Timothy Hatfield, Radha Sandoval, Sean Martins and colleagues, with an educational carolyn from [employer]. Review of Systems ENT Details: Ear clogged feeling and decreased hearing Physical exam (Primary Care) Vital Signs: Last Vital Signs Temp 97.1 F 03/19/25 15:32 Oxygen Delivery Method Room Air 03/19/25 15:32 BMI result Body Mass Index 41.2 Tobacco/Smoking Status: Tobacco use Status Tobacco use date assessed 11/26/24 02/26/25 15:36 Patient Tobacco Use Status Never used Tobacco 02/26/25 15:36 e-Cigarette/Vaping Use Never Used 02/26/25 15:36 Thrive Assessment: Date of Thrive Assessment Date Thrive assessed 11/20/24 02/26/25 15:36 Const General: cooperative, healthy appearing, comfortable and no acute distress Orientation/consciousness: patient oriented x3 HENMT Head: Yes normocephalic Ears: hearing grossly normal bilaterally General nose exam: Normal external nose present Resp Effort & Inspection: normal respiratory effort Cardio Rate: regular rate Neuro General: patient oriented x3 Psych Affect: normal affect Attitude: cooperative Insight: Good insight present (Psych) Judgement: Good judgement present (Psych) Office Procedures Cerumen Removal From which ear canal was the cerumen removed: bilateral Removal: irrigation and cerumen loop/spoon Notes: patient tolerated procedure well, no complications and ear canal clear [id number] Irrigation/Lavage Coding Level of Care Code Procedure Only Diagnoses Impacted cerumen of both ears H61.23 CPT Codes Office Procedure - CPT: 33550-Rlh Irrigation/Lavage ([id number]) Assessment & Plan Assessment & Plan (1) Impacted cerumen of both ears: Code(s): H61.23 - Impacted cerumen, bilateral Category: Medical Plan: Bilateral ears were cleaned using both lighted curette and irrigation. Cerumen was successfully removed and patient tolerated procedure well. Ear canal is atraumatic and TMs were visualized as intact with well aerated middle ear spaces without perforation or retraction. Patient left thumb without complication denies any dizziness or lightheadedness. Follow up as needed for this concern Plan This note was constructed using voice recognition software. While every effort has been made to ensure accuracy and clinical medical transcriptionist, still areas may have been included sometimes these areas may affect the content or meeting of the given symptoms. Total time spent caring for the patient today was 20 minutes. This includes time spent before the visit reviewing the chart, time spent during the visit, and time spent after the visit and documentation.
[2025-03-19 15:32] VITALS: BP 110/60; PULSE 51; TEMP 36.2; O2SAT 99; BMI 41.2
== END 2025-03-19 16:00 | disposition home or self-care (01) ==
LOC: HO.HMCH 15:24
DX: H61.23 Impacted cerumen, bilateral (principal)

== ENCOUNTER → 2025-03-19 15:23 | Outpatient (BNVA) | payer OTHER, SELFPAY | DX: H61.23 Impacted cerumen, bilateral (principal) | CPT/HCPCS: 69210 ==

== ENCOUNTER 2025-05-29 10:19 | Outpatient (AMB) | payer OTHER, SELFPAY ==
--- OUTSIDE RECORDS SUMMARY | 2025-05-29 10:20 | XMS_ITS | Clinical Summary ---
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 Name Role Phone Unavailable Primary Care Provider Unavailabl e Allergies No known active allergies Medications No known medications Encounters Date Type Department Care Team Description 03/29/2025 Telephone [facility] ADULT DENTAL [address] [place] [address] Chelsea De León DDS 03/09/2025 Telephone [facility] [address] [place] [address] Chelsea De León DDS from Last 3 [...] - 2023-2 5 season) 2024 02/10/2021, 01/19/2021 Dental Oral Exam 11/06/2024 05/05/2024 Influenza Vaccine (#1) 2025 08/02/2016 RSV Patients and Patients Aged 60 years [...] Most Recently Relevant to Health Maintenance Insurance [facility] [place] [id number]
[2025-05-29 11:11] VITALS: BP 110/64; PULSE 40; RESP 15; TEMP 36.7; O2SAT 98; BMI 41.3
--- NOTE | 2025-05-29 11:11 | MHC.OFFWIV ---
Intake Vital Signs 05/29/25 11:11 Height 5 ft 2 in Weight 226 lb BMI 41.3 BP 110/64 Blood Pressure Location Lt brachial Position Sitting Respiration 15 Pulse 40 L Pulse Source Pulse Oximeter Temp 98.1 F Temp Source Oral Pulse Oximetry (%) 98 Oxygen Delivery Method Room Air Intake Visit Reasons: EP Pallet fell on foot (NOT WC per PT) Intake Note: Pt is here today c/o Lt grt toe and nail discolored due to a pallet at work fell on her Lt foot 05/23/25 Patient Tobacco Use Status: Never used Tobacco Allergies No Known Allergies Allergy (Verified 05/29/25 11:12) HPI HPI Comments History of Present Illness Details This is a 54-year-old female who presented to the walk-in clinic complaining of left great toe ecchymosis x 6 days. Patient states she dropped an approximately 5 lb pallet on her left foot about 6 days ago at work. She states she developed some mild pain, swelling, and ecchymosis of the great toe. She states the pain has actually significantly improved and she now only has mild pain to the lateral aspect of her toenail, where there is a mild break in the toenail. She states the discoloration has persisted and slightly worsened prompting her visit to the urgent care today. She is able to bear weight and ambulate without difficulty or pain. [facility] Medical History Seizure disorder Surgical History H/O section History of appendectomy S/P cholecystectomy Family History Mother Hypertension Diabetes mellitus Sister Diabetes mellitus Social History Housing: House Patient Tobacco Use Status: Never used Tobacco e-Cigarette/Vaping Use: Never Used Second Hand Smoke Exposure: No service: No Current occupational status: employed Current occupation: [employer] Cognitive needs: No Hearing needs: No Vision needs: No Review of Systems Const All systems reviewed & are unremarkable except as noted in HPI and below Reports no additional complaints Eyes Reports no additional complaints ENT Reports no additional complaints Card Reports no additional complaints Resp Reports no additional complaints GI Reports no additional complaints Reports no additional complaints Musc Reports no additional complaints Skin/Breast Reports system reviewed and no additional complaints, except as documented Neuro Reports no additional complaints Psych Reports no additional complaints Endo Reports no additional complaints Blake/Lymph Reports no additional complaints Aller/Immun Reports no additional complaints Physical Exam Vital Signs: Last Vital Signs Temp 98.1 F 05/29/25 11:11 Pulse 40 L 05/29/25 11:11 Resp 15 05/29/25 11:11 BP 110/64 05/29/25 11:11 Pulse Ox 98 05/29/25 11:11 Oxygen Delivery Method Room Air 05/29/25 11:11 BMI result Body Mass Index 41.3 Const Other: Vital signs reviewed. Constitutional: Non-toxic appearing. No acute distress. Well-developed and well-nourished. HEENT: Normocephalic and atraumatic. EOMI. Skin: Warm and dry. No rashes or lesions noted. Neck: Full and painless range of motion. Cardio: Regular rate. No lower extremity edema. No JVD. Pulmonary: No respiratory distress. No accessory muscle usage. Musculoskeletal: There is a subungual hematoma of the left great toe, which appears to involve the whole nail bed. There is mild tenderness to palpation of the lateral aspect of the left great toenail, where there is a small break in the nail bed. There is otherwise no tenderness to palpation of the remainder of the great toe. There is no tenderness to palpation of the metatarsals or ankle. She has full and painless range of motion of the great toe. Neuro: Alert and oriented x4. Cranial nerves 2-12 grossly intact. No focal deficits appreciated. Psych: Normal mood and affect. Assessment & Plan Assessment & Plan (1) Subungual hematoma of great toe of left foot: Code(s): S90.212A - Contusion of left great toe with damage to nail, initial encounter Qualifiers: Encounter type: initial encounter Qualified Code(s): S90.212A - Contusion of left great toe with damage to nail, initial encounter Plan This is a 54-year-old female who presented to the walk-in clinic complaining of left great toe ecchymosis x 6 days. She states a 5 lb Pallet fell on her toe at work. On physical examination, there appears to be a subungual hematoma involving the whole nail bed of the left great toe. An x-ray of the left foot was obtained, which was negative for acute fracture/dislocation. Nail trephination was not performed given the injury occurred almost 1 week ago, patient has no significant pain, and the blood appears to be clotted so trephination would likely not be effective at this time. Recommended ice to the area, elevation of the extremity, continue with acetaminophen/ibuprofen as needed for pain management, and soaking the foot in warm soapy water multiple times a day to keep the area clean and aid in drainage of the hematoma. Patient advised to follow-up here for persistent/worsening symptoms. Patient verbalized understanding and is agreeable with the plan. Coding Level of Care Code Est Pt Level 3 (51226) Diagnoses Subungual hematoma of great toe of left foot, initial encounter S90.212A Encounter type: initial encounter
== END 2025-05-29 13:43 | disposition home or self-care (01) ==
PROVIDERS: Visit Provider Physician Assistant Medical
DX: S90.212A Contusion of left great toe with damage to nail, initial encounter (principal)

== ENCOUNTER 2025-05-29 10:19 | Outpatient (REF) | payer OTHER, SELFPAY ==
--- NOTE | ~2025-05-29 | XR_ITS ---
CLINICAL HISTORY: pt states a pallet fell on her left great toe one week ago 3 view left foot Comparison: None provided Findings: No fractures or dislocations. Calcaneal enthesophyte. No ankle effusion. No radiopaque foreign body. IMPRESSION: 1. No acute findings. This document has been electronically signed by: Kaelyn Padilla MD on 05/29/2025 13:05:02
== END 2025-05-29 10:20 | disposition home or self-care (01) ==
LOC: HO.HMGCX 10:19
PROVIDERS: Visit Provider Physician Assistant Medical
DX: S90.212A Contusion of left great toe with damage to nail, initial encounter (principal); W20.8XXA Other cause of strike by thrown, projected or falling object, initial encounter
CPT/HCPCS: 73630; 99212

== ENCOUNTER → 2025-05-29 12:04 | Outpatient (BNV) | payer OTHER, SELFPAY | PROVIDERS: Visit Provider Nuclear Medicine | DX: M77.32 Calcaneal spur, left foot (principal) | CPT/HCPCS: 73630 ==